=== PATIENT | male | born 1955 | race Caucasian/White ===

== ENCOUNTER 2018-10-21 01:45 | Outpatient (CLI) | payer BC, SELFPAY ==
[2018-10-21 09:19] LABS: ALT 60 U/L (12-78); AST 24 U/L (15-37); Cholesterol 197 mg/dL (50-200); HDL Cholesterol 48 mg/dL (40-60); LDL CHOLESTEROL 126 mg/dL (<100); Triglyceride 90 mg/dL (30-150)
[2018-10-24 14:20] LABS: Testosterone, Total 523 ng/dL (240-950)
== END 2018-10-21 02:05 ==
PROVIDERS: PCP Family Medicine; Visit Provider Family Medicine
DX: E78.5 Hyperlipidemia, unspecified (principal); N52.9 Male erectile dysfunction, unspecified; Z12.5 Encounter for screening for malignant neoplasm of prostate
CPT/HCPCS: 36415; 80061; 83721; 84153; 84403; 84450; 84460

== ENCOUNTER 2019-05-19 01:41 | Outpatient (CLI) | payer BC, SELFPAY ==
[2019-05-19] MEDS: Inhaler, Assist Device 1 EACH MC (09:00)
[2019-05-19] MEDS: Albuterol HFA 18 GM 200 PUFF INH IH (09:21)
--- NOTE | 2019-05-19 14:19 | PFT_ITS ---
DATE OF VISIT: May 19, 2019 REQUESTING PROVIDER: Ricardo Stephens M.D. Spirometry shows borderline mild obstructive airways disease with no bronchodilator response. This may represent normal variant. Lung volumes showed no evidence of restriction. Diffusion capacity normal. Airways resistance normal. IMPRESSION: Likely normal overall normal pulmonary function study though there might be some borderline mild obstruction. This, however, may just represent a normal variant with a slightly suboptimal patient effort for pre-bronchodilator testing. Clinical correlation therefore recommended.
== END 2019-05-19 02:01 ==
PROVIDERS: PCP Family Medicine; Visit Provider Family Medicine
DX: R06.00 Dyspnea, unspecified (principal); Z87.891 Personal history of nicotine dependence
CPT/HCPCS: 94060; 94150; 94726; 94729

== ENCOUNTER 2020-03-05 03:50 | Outpatient (CLI) | payer BC, SELFPAY ==
[2020-03-05 10:08] LABS: Abs Immature Grans 0.02 10^3/uL (0.0-0.06); Absolute Basophil Count 0.03 10^3/uL (0.0-0.2); Absolute Eosinophil Count 0.17 10^3/uL (0.0-0.7); Absolute Lymphocyte Count 1.48 10^3/uL (1.2-3.4); Absolute Neutrophil Count 4.37 10^3/uL (1.2-6.7); Basophils % 0.4; Eosinophils % 2.5; HCT 42.4 % (40.0-50.0); HGB 13.6 g/dL (13.5-17.5); Immature Grans % 0.3; Lymphocytes % 21.5; MCH 30.2 pg (27.0-33.0); MCHC 32.1 % (32.0-36.0); MCV 94.2 fL (80-95); Monocytes % 11.6; Neutrophils % 63.7; Nucleated RBC 0 %; Platelet Count 276 10^3/uL (130-400); RDW-SD 41.8 fL; WBC 6.87 10^3/uL (4.4-10.8)
[2020-03-05 10:52] LABS: Bacteria Many HPF (Negative); C & S Indicated? Yes; WBC >50 HPF (0-5)
[2020-03-05 11:01] LABS: ALT 294 U/L (16-63); AST 101 U/L (15-37); Albumin 3.3 g/dL (3.4-5.0); Alkaline Phosphatase 244 U/L (46-116); Anion Gap 9.3 mmol/L (3-11); BUN 17 mg/dL (7-18); Bilirubin, Total 0.4 mg/dL (0.2-1.0); CO2 28.7 mmol/L (21.0-32.0); CREATININE 1.07 mg/dL (0.70-1.30); Calcium 9.1 mg/dL (8.5-10.1); Chloride 104 mmol/L (98-107); Glucose 98 mg/dL (74-106); Potassium 4.2 mmol/L (3.5-5.1); Sodium 142 mmol/L (136-145); Total Protein 6.7 g/dL (6.4-8.2)
== END 2020-03-05 04:10 ==
PROVIDERS: PCP Family Medicine; Visit Provider Family Medicine
DX: R10.9 Unspecified abdominal pain (principal); R82.998 Other abnormal findings in urine
CPT/HCPCS: 36415; 80053; 87077; 81015; 85025; 87086; 87186

== ENCOUNTER 2020-03-11 01:26 | Outpatient (CLI) | payer BC, SELFPAY ==
--- NOTE | 2020-03-11 07:15 | DI.CT_ITS ---
EXAM: CT ABDOMEN PELVIS W CLINICAL HISTORY: persistent constipation; wt loss recently TECHNIQUE: Imaging Protocol: Axial computed tomography images with coronal and sagittal reformatted images were created and reviewed CONTRAST MATERIAL: Intravenous: Omnipaque 350 Contrast volume:100 mL Oral: Yes COMPARISON: No exams were available for comparison FINDINGS: ABDOMEN: Lung Bases: Scarring in the left lower lobe and lingula. Liver: Normal density. No measurable mass. Portal, Superior Mesenteric, and Splenic Veins: Unremarkable. Gallbladder and Biliary Tract: No radiodense calculus or dilation. Pancreas: Normal density, no abnormal calcifications or inflammatory process. Spleen: Normal. Adrenals: No masses seen. Kidneys: Normal size, contour and axis. There are bilateral duplex collecting systems proximally. No radiodense stones or obstructive uropathy. Bilateral renal cysts. Abdominal Aorta: Abdominal portion non-dilated. Atherosclerosis. Bowel: No obstruction or bowel wall thickening. Appendix measures 1 cm in diameter. No appendicoliths or Miladys appendiceal inflammatory changes are seen. There is a moderate amount of stool throughout th e colon. Peritoneal Cavity: No ascites, collection or mesenteric inflammatory response. Lymph Nodes: Within normal limits. Bones: Degenerative changes. Soft Tissues: Findings suggestive of a prior right inguinal hernia repair. PELVIS: Bladder: Symmetric distention, no gross wall thickening. Reproductive Organs: Enlarged prostate gland. Lymph Nodes: Within normal limits. Bones: Degenerative changes. IMPRESSION: 1. Moderate amount of retained stool throughout the colon suggesting constipation. 2. Prostatic enlargement. 3. Appendix measuring 1 cm in diameter. No surrounding inflammation or appendicoliths. RADIATION DOSE DELIVERED: 950.71mGy.cm Total DLP DATA REPOSITORY: All CT scans at this facility are submitted to the National Radiology Data Registry (NRDR) Dose Index Registry (DIR) with the [employer] ([employer]). RADIATION OPTIMIZATION: All CT scans at this facility use at least one of these dose optimization te chniques: automated exposure control; mA and/or kV adjustment per patient size (includes targeted exa ms where dose is matched to clinical indication); or iterative reconstruction.
[2020-03-11] MEDS: Normal Saline - Diluent 50 ML VIAL IV (09:24)
[2020-03-11] MEDS: Normal Saline Flush 10 ML SYR IVP (09:25)
[2020-03-11] MEDS: Omnipaque 350 MG/ML 50 ML BTL PO (09:28)
== END 2020-03-11 01:46 ==
PROVIDERS: PCP Family Medicine; Visit Provider Family Medicine
DX: K59.00 Constipation, unspecified (principal); N40.0 Benign prostatic hyperplasia without lower urinary tract symptoms
CPT/HCPCS: 74177; Q9967

== ENCOUNTER 2020-04-09 03:17 | Outpatient (CLI) | payer BC, SELFPAY ==
[2020-04-09 09:05] LABS: ALT 88 U/L (16-63); AST 31 U/L (15-37); Albumin 3.6 g/dL (3.4-5.0); Alkaline Phosphatase 114 U/L (46-116); Bilirubin, Total 0.4 mg/dL (0.2-1.0); Total Protein 6.8 g/dL (6.4-8.2)
[2020-04-09 18:10] LABS: PSA, Screening 3.4 ng/mL (0.0-4.5)
== END 2020-04-09 03:37 ==
PROVIDERS: PCP Family Medicine; Visit Provider Family Medicine
DX: G72.89 Other specified myopathies (principal); Z12.5 Encounter for screening for malignant neoplasm of prostate
CPT/HCPCS: 36415; 80076; 84153

== ENCOUNTER 2020-05-13 10:38 | Outpatient (REF) | payer BC, SELFPAY | END 2020-05-13 10:58 | LOC: LBN 10:38 | PROVIDERS: PCP Family Medicine; Visit Provider Nurse Practitioner Gerontology | DX: R97.20 Elevated prostate specific antigen [PSA] (principal) | CPT/HCPCS: 84154 ==

== ENCOUNTER 2020-11-17 03:21 | Outpatient (CLI) | payer OTHER, SELFPAY | END 2020-11-17 03:22 | disposition home or self-care (01) | LOC: LBO 03:21 | PROVIDERS: PCP Family Medicine; Visit Provider Nurse Practitioner Gerontology | DX: R97.20 Elevated prostate specific antigen [PSA] (principal) | CPT/HCPCS: 36415; 84153 ==

== ENCOUNTER 2020-11-24 00:49 | Outpatient (CLI) | payer OTHER, SELFPAY ==
--- NOTE | 2020-11-24 08:00 | DI.RAD_ITS ---
Exam(s) XR HIP PELVIS ADULT BL EXAM: XR HIP PELVIS ADULT BL CLINICAL HISTORY: jose j hip pain,M25.551,M25.552. TECHNIQUE: 2D digital imaging was performed. COMPARISON: CT CT ABDOMEN PELVIS W from 03/11/2020 FINDINGS: There is no evidence of pelvic nor hip fracture. No hip joint space narrowing. Small peripherally c alcified density seen off the superolateral aspect of the right hip acetabulum, appearing corticated. No ominous osseous lesions. Sacroiliac joints appear unremarkable. IMPRESSION: DATA REPOSITORY: RADIATION DOSE DELIVERED:
== END 2020-11-24 01:09 ==
PROVIDERS: PCP Family Medicine; Visit Provider Family Medicine
DX: M25.551 Pain in right hip (principal); M25.552 Pain in left hip
CPT/HCPCS: 73521

== ENCOUNTER 2021-03-31 00:50 | Outpatient (CLI) | payer OTHER, SELFPAY ==
--- NOTE | 2021-03-31 07:45 | DI.RAD_ITS ---
Exam(s) XR CERVICAL SPINE COMP 4-5V EXAM: XR CERVICAL SPINE COMP 4-5V CLINICAL HISTORY: Neck pain for 2 months,M54.2. TECHNIQUE: 2D digital imaging was performed. COMPARISON: No exams were available for comparison FINDINGS: No evidence of fracture or listhesis nor offset of the spinal laminar line. Disc spaces exhibit rela tively preserved disc height at each level. No cervical ribs. On the oblique views there are small Luschka joint osteophytes at C4-5 level 2 on the left side and C5-6 level on the opposite side. No cervical ribs. IMPRESSION: Subtle degenerative disc disease. If clinically indicated follow-up MRI can be performed. DATA REPOSITORY: RADIATION DOSE DELIVERED:
== END 2021-03-31 01:10 ==
PROVIDERS: PCP Family Medicine; Visit Provider Family Medicine
DX: M54.2 Cervicalgia (principal); M50.321 Other cervical disc degeneration at C4-C5 level; M50.322 Other cervical disc degeneration at C5-C6 level
CPT/HCPCS: 72050

== ENCOUNTER 2021-11-18 02:48 | Outpatient (CLI) | payer OTHER, SELFPAY ==
[2021-11-18 08:14] LABS: ALT 69 U/L (16-63); AST 38 U/L (15-37); Calculated LDL 135 mg/dL (<100); Cholesterol 199 mg/dL (<200); HDL Cholesterol 36 mg/dL (40-60); Triglyceride 142 mg/dL (<150)
[2021-11-18 22:50] LABS: PSA, Screening 2.2 ng/mL (<=4.5)
== END 2021-11-18 02:49 | disposition home or self-care (01) ==
LOC: LBO 02:49
PROVIDERS: Nurse Practitioner Gerontology; PCP Family Medicine; Visit Provider Family Medicine
DX: E78.5 Hyperlipidemia, unspecified (principal); R94.5 Abnormal results of liver function studies; K76.0 Fatty (change of) liver, not elsewhere classified; R97.20 Elevated prostate specific antigen [PSA]; Z12.5 Encounter for screening for malignant neoplasm of prostate
CPT/HCPCS: 36415; 80061; 84153; 84450; 84460

== ENCOUNTER → 2022-03-14 00:46 | Outpatient (CLI) | payer OTHER, SELFPAY ==
--- NOTE | 2022-03-14 07:30 | DI.RAD_ITS ---
Exam(s) XR CERVICAL SPINE COMP 4-5V EXAM: XR CERVICAL SPINE COMP 4-5V CLINICAL HISTORY: chronic neck pain,M54.2. TECHNIQUE: 2D digital imaging was performed. Six images were obtained. AP, odontoid, lateral and jose j ateral oblique images were obtained. COMPARISON: CR XR CERVICAL SPINE COMP 4-5V from 03/31/2021 FINDINGS: The odontoid is intact. The lateral masses are well aligned. There is normal alignment of the cervi evans spine. The disc spaces and posterior elements are well maintained. There are mild degenerative changes of the facets at C4-C5. Small osteophytes are seen at the endplates posteriorly at C5-C6. No acute fracture or subluxation is present. There is mild narrowing of the neural foramen on the right at C3-C4. The cervical thoracic junction is well maintained. The prevertebral soft tissues are unre markable. Lung apices are clear. IMPRESSION: Mild degenerative changes seen in the cervical spine. DATA REPOSITORY: RADIATION DOSE DELIVERED:
== END ==
PROVIDERS: PCP Family Medicine; Visit Provider Family Medicine
DX: M47.812 Spondylosis without myelopathy or radiculopathy, cervical region (principal)
CPT/HCPCS: 72050

== ENCOUNTER 2022-09-05 02:26 | Outpatient (CLI) | payer MEDICARE, SELFPAY ==
[2022-09-05 14:17] LABS: CREATININE 1.1 mg/dL (0.70-1.30); Estimated GFR 74.04 (mL/min/1.73m2); Potassium 3.9 mmol/L (3.5-5.1)
== END 2022-09-05 02:27 | disposition home or self-care (01) ==
LOC: LBO 02:26
PROVIDERS: PCP Family Medicine; Visit Provider Family Medicine
DX: I10 Essential (primary) hypertension (principal)
CPT/HCPCS: 36415; 82565; 84132

== ENCOUNTER 2022-12-28 02:22 | Outpatient (CLI) | payer MEDICARE, SELFPAY ==
[2022-12-29 20:25] LABS: PSA, Diagnostic 2.3 ng/mL (<=4.5)
== END 2022-12-28 02:23 | disposition home or self-care (01) ==
LOC: LBO 02:22
PROVIDERS: PCP Family Medicine; Visit Provider Nurse Practitioner Gerontology
DX: N40.0 Benign prostatic hyperplasia without lower urinary tract symptoms (principal)
CPT/HCPCS: 36415; 84153

== ENCOUNTER → 2023-01-23 09:47 | Outpatient (BNVA) | payer MEDICARE, SELFPAY | PROVIDERS: PCP Family Medicine; Visit Provider Nurse Practitioner Gerontology | DX: R97.20 Elevated prostate specific antigen [PSA] (principal); N40.1 Benign prostatic hyperplasia with lower urinary tract symptoms; R39.89 Other symptoms and signs involving the genitourinary system | CPT/HCPCS: 99213 ==

== ENCOUNTER 2023-03-04 14:42 | Emergency (ER) | payer MEDICARE, SELFPAY ==
[2023-03-04 14:42] VITALS: BP 170/96; PULSE 88; RESP 20; TEMP 36.4; O2SAT 90
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
[2023-03-04] MEDS: MORPHine 10 MG/ML VIAL 5 MG IVP (15:38)
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
[2023-03-04] MEDS: ACETAMINOPHEN 1,000 MG/100 ML BTL 400 MG IVPB (16:19)
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
[2023-03-04 16:57] LABS: Abs Immature Grans 0.04 10^3/uL (0.0-0.06); Absolute Basophil Count 0.04 10^3/uL (0.0-0.2); Absolute Eosinophil Count 0.01 10^3/uL (0.0-0.7); Absolute Monocyte Count 0.53 10^3/uL (0.1-0.8); Basophils % 0.3; Eosinophils % 0.1; HCT 41.4 % (40.0-50.0); HGB 13.8 g/dL (13.5-17.5); Immature Grans % 0.3; Lymphocytes % 5.4; MCH 30.5 pg (27.0-33.0); MCHC 33.3 % (32.0-36.0); MCV 92 fL (80-95); MPV 9.9 fL (8.0-11.0); Monocytes % 4.3; Neutrophils % 89.6; Platelet Count 240 10^3/uL (130-400); RBC 4.52 10^6/uL (4.36-5.78); RDW 12.3 % (11.8-14.1); WBC 12.31 10^3/uL (4.4-10.8)
[2023-03-04 17:00] LABS: Absolute Lymphocyte Count 0.66 10^3/uL (1.2-3.4); Absolute Neutrophil Count 11.03 10^3/uL (1.2-6.7)
[2023-03-04 17:18] LABS: PTT Activated 24.6 sec (21.5-31.9); Prothrombin Time 9.9 sec (9.3-11.0)
[2023-03-04 17:19] LABS: ALT 37 U/L (16-63); AST 23 U/L (15-37); Albumin 3.6 g/dL (3.4-5.0); Alkaline Phosphatase 91 U/L (46-116); Amylase 54 U/L (25-115); BUN 19 mg/dL (7-18); Bilirubin, Total 0.4 mg/dL (0.2-1.0); CREATININE 1.1 mg/dL (0.70-1.30); Calcium 8.9 mg/dL (8.5-10.1); Chloride 103 mmol/L (98-107); Estimated GFR 73.58 (mL/min/1.73m2); Glucose 94 mg/dL (74-106); Lipase 39 U/L (16-77); Potassium 3.8 mmol/L (3.5-5.1); Sodium 138 mmol/L (136-145); Total Protein 6.9 g/dL (6.4-8.2)
== END 2023-03-04 18:08 | disposition home or self-care (01) ==
PROVIDERS: Emergency Provider Student in an Organized Health Care Education/Training Program; PCP Family Medicine
DX: M25.512 Pain in left shoulder (principal); R07.81 Pleurodynia; V19.9XXA Pedal cyclist (driver) (passenger) injured in unspecified traffic accident, initial encounter; S42.032A Displaced fracture of lateral end of left clavicle, initial encounter for closed fracture; I10 Essential (primary) hypertension; R91.8 Other nonspecific abnormal finding of lung field
CPT/HCPCS: 36415; 80053; 83690; 96365; 96375; 99284; 71046; 71100; 73030; 82150; 85025; 85610; 85730; 99285; J0131; J2270

== ENCOUNTER 2023-03-06 15:00 | Outpatient (CLI) | payer MEDICARE, SELFPAY ==
--- NOTE | 2023-03-06 14:00 | DI.RAD_ITS ---
Exam(s) XR CLAVICLE LT EXAM: XR CLAVICLE LT CLINICAL HISTORY: clavicle fx f/u TECHNIQUE: 2D digital imaging was performed of the left clavicle. Two images were obtained. AP and axial views were obtained. COMPARISON: CR,XR XR SHOULDER LT COMPLETE 2+V from 03/04/2023 FINDINGS: BONES: There is again seen a fracture of the distal left clavicle. Since the prior examination, ther e has been an interval increase in the displacement of the fracture. The acromioclavicular joint is intact. No bony destructive lesion is seen. JOINTS: No dislocation present. SOFT TISSUE: Normal. IMPRESSION: Interval increased displacement of the distal left clavicular fracture. DATA REPOSITORY: RADIATION DOSE DELIVERED:
== END 2023-03-06 15:01 | disposition home or self-care (01) ==
LOC: DIORS 15:00
PROVIDERS: PCP Family Medicine; Referring Provider Family Medicine; Visit Provider Student in an Organized Health Care Education/Training Program
DX: S42.032A Displaced fracture of lateral end of left clavicle, initial encounter for closed fracture; W19.XXXA Unspecified fall, initial encounter
CPT/HCPCS: 99204; 99214; 73000

== ENCOUNTER 2023-03-08 10:41 | Day surgery (SDC) | payer MEDICARE, SELFPAY ==
[2023-03-08] VITALS (28 sets, daily range): BP systolic 127–167; BP diastolic 62–97; PULSE 59–83; RESP 9–17; TEMP 36.5–36.8; O2SAT 91–96; BMI 32.1
--- NOTE | 2023-03-08 07:29 | W.PM.OP ---
Date of service: 03/08/23 Time of Service: 17:00 Operative Note Operative Note DATE OF PROCEDURE: 03/08/23 PRE-OP DIAGNOSIS: Left displaced distal clavicle fracture POST-OP DIAGNOSIS: same PROCEDURE: Left clavicle open reduction internal fixation, CPT #91316 SURGEON: Donald Wilson PRECISION MACHINIST: Barrington Segura PRECISION MACHINIST: Sona Gifford ANESTHESIA TYPE: Local By Surgeon, General LMA/ETT and Primary Nerve Block Refer to Anesthesia Record ESTIMATED BLOOD LOSS: 10 Patient was transported to: PACU Implants: Synthes 2.7mm VA LCP clavicle plate system LATERAL CS1 plate with 5x lateral and 3x medial bicortical locking screws, 1x medial bicortical compression screw; 2x Arthrex suture tape lateral cerclage. Indications: Please see complete medical record for details. Procedure Description: In the operating room, general anesthesia was induced. The patient was positioned supine on the operating room table. All bony prominences were well-padded. Preoperative antibiotics were administered. The clavicle was prepped and draped in the usual sterile fashion. The correct patient, procedure, and side of the procedure were all verified prior to incision. The planned lateral clavicle and AC joint incision was pre-injected with local anesthetic containing epinephrine. The fracture site was approached raising full-thickness flaps down to bone. The incision was extended medially laterally as necessary. Care was taken to preserve soft tissue attachments especially the AC joint capsule and anterior inferior attachments to the trapezoid CC ligament. The fracture ends were identified. Bone forceps were used to provisionally obtain reduction. Lateral bone was quite small as expected, so hook plate fixation was attempted initially, a small posterior lateral opening was made in the trapezius with blunt dissection confirming opening for hook plate underneath the acromion. Various hook plate options were tried, but given the AC joint arthrosis all of the hooks were to short in height and resulted in significant downward pressure on the clavicle displacing the fracture and potentially leading to acromial erosion. The superior lateral margin of the distal clavicle was smoothed and rasped to better fit hook plate shape, but still given the under side acromion bone spurring there is no way to achieve a reasonable fit. Suture tape was then passed through the lateral bone fragment to be used later for repair. A needle was placed in the AC joint, capsule and attachment still maintained to the lateral fragment, and fluoroscopic guidance used to place a lateral precontoured plate as far laterally as possible to achieve optimal screw purchase and fixation in the distal fragment. The needle in the AC joint was used to confirm that the plate was medial from the joint and that all screws would be in the lateral fragment and not penetrate the joint. The plate was provisionally held medially with bicortical cortex screw and rotated adjusted into optimal position on the superior aspect of the clavicle up to the AC joint. An initial cortex screw was placed in the central lateral hole fluoroscopically and under tactile field confirming bicortical purchase on the inferior aspect of the lateral fragment. There was excellent reduction and provisional fixation. The next medial to lateral locking screws were drilled and filled with appropriately length bicortical locking screws, the medial 3 locking screw positions were drilled and filled with bicortical locking screws, and lastly the remaining most lateral 2 screws were drilled using fluoroscopic guidance in a divergent fashion from each other and parallel to the contour of the distal clavicle at the AC joint and filled with appropriate length bicortical screws. C arm confirmed excellent fracture reduction and appropriate hardware placement, the hardware was not too close to the AC joint, under direct stress with a clamp the construct was stable as well as stable to direct manual stress upward and downward pressure through the arm at the shoulder. The suture tape that had been already placed was then secured through the suture holes on the lateral margin of the plate and tied of low-profile knot. An additional suture tape was then cerclage around and through the lateral aspect of the clavicle slightly more medially, passed through a suture hole in the plate and then tied also low-profile knots over the top of the plate for added fixation. The plate and fracture was inspected and demonstrated good stability and fixation strength. AP and [id number] fluoroscopy confirmed appropriate fracture reduction and hardware placement. The wound was copiously irrigated with normal saline. Deep and subcutaneous tissue was closed in a full-thickness watertight fashion with buried interrupted 2-0 Monocryl. Subcuticular layer was closed using running 3-0 Monocryl. Skin glue was applied over the incision followed by a Mepilex Band-Aid. The patient awoke from anesthesia without complication and was transferred to the recovery room in a stable condition.
--- NOTE | 2023-03-08 07:29 | W.PM.DSUDISC ---
Date of service: 03/08/23 Time of Service: 17:00 Discharge Plan Disposition Patient Disposition: Home Condition: Stable Discharge Details Attending Provider: Donald Wilson Primary Care Provider: Ricardo Stephens Home Meds and New Rx's Prescriptions: New naproxen 250 mg tablet 250 - 500 mg PO BID PRNQty: 40 0RF Rx Instructions: take with a meal oxycodone 5 mg tablet 5 - 10 mg PO Q4H MDD 30 mg PRN (Reason: moderate to severe pain) Qty: 12 0RF Continued Emgality Pen 120 mg/mL pen injector 120 - 240 mg subcut QMONTH PRN (Reason: cluster headache) Rx Instructions: one injection in each arm Day 1, then one injection q month docusate sodium [Colace] 100 mg capsule 100 mg PO DAILY PRN PROVENTIL HFA 18 GM HFA.AER.AD 1 - 2 puff Inhalation prior to exercise PRNQty: 1 3RF losartan 50 mg tablet 50 mg PO DAILY Qty: 90 3RF bupropion HCl [Wellbutrin XL] 300 mg tablet extended release 24 hr 300 mg PO QAM Qty: 90 3RF rosuvastatin 10 mg tablet 10 mg PO DAILY Qty: 90 1RF oxycodone 5 mg capsule 5 mg PO BID PRNQty: 8 0RF Enbrel SureClick 50 mg/mL (1 mL) Pen Injector 50 mg SUBCUT QMONTH Discharge Instructions Additional Instructions: Surgery: Left distal clavicle ORIF Activity: For about 4-6 weeks, you should protect left clavicle and shoulder. Keep arm near side in a relatively neutral position most of the time. Do not try to lift or raise your arm using your own muscles. You should use the sling whenever you are out of the house. At home it is best to remove the sling and rest the arm on a pillow at your side or support the operative side with your other hand. You should avoid dangling the left arm, and support it when ambulatory with your other hand or the sling. After the initial postop visit, we will gradually increase shoulder range of motion. You may gently use her hand for light activities. Prescriptions: Naproxen 250 mg take 1-2 every 12 hours with a meal as needed for moderate pain Oxycodone 5 mg take 1-2 every 4-6 hours as needed for severe pain You may use rnqx-pnf-cwviejo Tylenol (acetaminophen) as needed for mild pain. These pain medications may be taken all at once or in different combinations as needed. Also, recommend Colace (docusate) as a stool softener as surgery and pain medicine cause constipation. You may try nwgr-blt-[id number] diphenhydramine (Benadryl) 25-50 mg nightly as a sleep aid Dressings: Keep bandage in place until follow-up. Please keep clean and dry. Follow-up: 10-[address] Wilson You may take off the leg compression stockings this evening at home. You may also leave them on a few days longer if you have a history of leg swelling or edema. Let us know right away if you develop any redness, drainage, fevers, chest pain, or trouble breathing. Do not drink alcohol or drive for at least 24 hours after anesthesia. Please call the office during business hours with any questions or concerns. Discharge Orders Discharge Orders: Discharge Order (Routine); Ordered 03/08/23 Ordered By: Donald Wilson DS: Diagnosis Discharge Diagnosis (1) Fracture of left clavicle: Status: Acute
[2023-03-08] MEDS: Lactated Ringers 1,000 ML 80 ML IV (11:30)
--- NOTE | 2023-03-08 12:24 | W.ANESPRE ---
General Info Date of Service Date Performed: 03/08/23 Height: 5 ft 10 in Weight: 101.6 kg Body Mass Index (BMI): 32.1 Surgical Procedure: Operation Date: 03/08/23 13:40 Proposed Procedure Side Surgeon p Shoulder ORIF Clavicle, possible Hook Plate Left Donald Wilson MD Meds Allergies and Home Medications Allergies Allergy/AdvReac Type Severity Reaction Status Date / Time shellfish derived Allergy Severe Verified 03/08/23 11:06 latex Allergy Mild Verified 03/08/23 11:06 Penicillins Allergy rash Verified 03/08/23 11:06 simvastatin AdvReac Severe MUSCLE, Verified 03/08/23 11:06 JOINT PAIN Home Medication Medication Instructions Recorded docusate sodium 100 mg capsule 100 mg PO DAILY PRN 03/04/21 (Colace) galcanezumab-gnlm 120 mg/mL 120 - 240 mg subcut QMONTH PRN 03/04/21 subcutaneous pen injector cluster headache (Emgality Pen) losartan 50 mg tablet 50 mg PO DAILY #90 tabs 07/31/22 bupropion HCl 300 mg 24 hr tablet, 300 mg PO QAM #90 tabs 08/10/22 extended release (Wellbutrin XL) rosuvastatin 10 mg tablet 10 mg PO DAILY #90 tabs 09/19/22 oxycodone 5 mg capsule 5 mg PO BID PRN #8 caps 03/04/23 etanercept 50 mg/mL (1 mL) 50 mg subcut QMONTH 03/07/23 subcutaneous pen injector (Enbrel SureClick) Current Visit Medications: Current Medications Generic Name Dose Route Start Last Admin Trade Name Alexeyq PRN Reason Stop Dose Admin Ringer's Solution 1,000 mls @ 80 mls/hr 03/08/23 06:00 03/08/23 11:30 IV 04/06/23 23:59 80 mls/hr INFUSION LAW Administration Cefazolin Sodium/Dextrose 2 gm in 50 mls @ 100 mls/hr 03/08/23 06:00 Ancef Duplex IVPB 04/06/23 23:59 PREOP LAW IV Miscellaneous Supplies 1 each 03/08/23 06:00 Iv Access IV 04/06/23 23:59 DIRECTED LAW Oxycodone HCl 0 mg 03/08/23 07:29 Oxycodone 5 Mg Tab PO 04/07/23 07:28 Q3H PRN PRN Pain Sodium Chloride 0 ml 03/08/23 06:00 Normal Saline Flush 10 Ml Syr IV 04/06/23 23:59 PRN PRN Sodium Chloride 0 ml 03/08/23 06:00 Normal Saline 10 Ml Vial IJ 04/06/23 23:59 DIRECTED PRN Sterile Water 0 ml 03/08/23 06:00 Water,Injection,Sterile 10 Ml Vial IJ 04/06/23 23:59 DIRECTED PRN PFSH Active Problems Active Problems: Problem Status Onset Code Vitamin D deficiency E55.9 Psoriasis L40.9 Hyperlipidemia E78.5 Cluster headaches G44.009 Anxiety with depression F41.8 Elevated blood pressure, situational R03.0 Dyspnea R06.00 Well adult Encounter for immunization Z23 Abdominal pain R10.9 Constipation K59.00 Weight loss R63.4 Abnormal LFTs R94.5 Elevated PSA R97.20 Bilateral hip pain M25.551, M25.552 Neck pain M54.2 Excessive cerumen in both ear canals H61.23 Impacted cerumen, left ear H61.22 Acute dysfunction of right eustachian tube H69.81 Neck pain M54.2 Aneurysm I72.9 Fracture of left clavicle 03/04/23 S42.002A Medical History Medical History Anxiety Depression Hyperlipidemia Psoriatic arthritis Surgical History Surgical History (Updated 03/08/23 @ 11:06 by Narinder Hernandez) Hx of tonsillectomy Tobacco Smoking/Tobacco Use Status: Former Tobacco Use Passive smoking exposure: Yes Second hand exposure: Yes Alcohol Alcohol Intake: current Alcohol intake frequency: a few times a week Alcohol type: hard liquor Substance Use Substance use: Occasionally Substance use type: marijuana Vital Signs and Lab Results Vital Signs Most Recent Vital Signs in EMR: Most Recent Vital Signs Temp Pulse Resp BP Pulse Ox 36.8 C 69 16 154/82 H 94 03/08/23 11:09 03/08/23 11:09 03/08/23 11:09 03/08/23 11:09 03/08/23 11:09 Lab Results Blood Type / Crossmatch: No Data to Display Complete Blood Count: White Blood Count 12.31 10^3/uL (4.4-10.8) H 03/04/23 16:45 Red Blood Count 4.52 10^6/uL (4.36-5.78) 03/04/23 16:45 Hemoglobin 13.8 g/dL (13.5-17.5) 03/04/23 16:45 Hematocrit 41.4 % (40.0-50.0) 03/04/23 16:45 Platelet Count 240 10^3/uL (130-400) 03/04/23 16:45 Complete Metabolic Panel: Sodium 138 mmol/L (136-145) 03/04/23 16:45 Potassium 3.8 mmol/L (3.5-5.1) 03/04/23 16:45 Chloride 103 mmol/L (98-107) 03/04/23 16:45 Carbon Dioxide 25.0 mmol/L (21.0-32.0) 03/04/23 16:45 BUN 19 mg/dL (7-18) H 03/04/23 16:45 Creatinine 1.1 mg/dL (0.70-1.30) 03/04/23 16:45 Est GFR (CKD-EPI 2020) 73.58 (mL/min/1.73m2) 03/04/23 16:45 Calcium 8.9 mg/dL (8.5-10.1) 03/04/23 16:45 Albumin 3.6 g/dL (3.4-5.0) 03/04/23 16:45 Glucose 94 mg/dL (74-106) 03/04/23 16:45 Liver Function Panel: Alanine Aminotransferase (ALT/SGPT) 37 U/L (16-63) 03/04/23 16:45 Aspartate Amino Transf (AST/SGOT) 23 U/L (15-37) 03/04/23 16:45 Coagulation Panel: INR International Normalized Ratio 1.0 (0.9-1.1) 03/04/23 16:45 Prothrombin Time 9.9 sec (9.3-11.0) 03/04/23 16:45 Activated Partial Thromboplast Time 24.6 sec (21.5-31.9) 03/04/23 16:45 Cardiac Panel: No Data to Display Arterial Blood Gas: No Data to Display Venous Blood Gas: No Data to Display Pancreas Panel: Amylase Level 54 U/L (25-115) 03/04/23 16:45 Lipase 39 U/L (16-77) 03/04/23 16:45 Thyroid Panel: No Data to Display Infectious Disease: No Data to Display Blood Cultures: No Data to Display Toxicology Panel: No Data to Display Anesthesia Assessment and Plan Anesthesia History Personal History: No History of Anesthesia Complications Family History: No Family History of Anesthesia Complications Exercise Tolerance Exercise Tolerance: Metabolic Equivalents>4 Pertinent Negatives Pertinent Negatives: No Symptoms of GERD, No Major Cardiovascular Symptoms or Complaints and No Major Pulmonary Symptoms or Complaints Cardiac & Pulmonary Exam Cardiac Exam: Normal S1/S2 Heart Sounds Pulmonary Exam: Clear Bilateral Breath Sounds Implantable Cardiac Device Does patient have a Pacemaker or an ICD?: No Airway Exam Known Difficult Airway: No Mallampati Class: 2 Mouth Opening: Normal (> 3cm) Thyromental Distance: Greater than 3 cm Neck Range of Motion: Full ROM Neck Circumference: Normal Teeth Condition: Normal Dentition ASA Classification ASA Score: ASA 2 Emergency Case?: No NPO Status NPO Status: NPO Clears >2 hours, Solids >8 hours Anesthesia Plan Resuscitation Status: Full Code Anesthesia Technique: General Anesthesia Airway Planned: Endotracheal Tube Pain Management: Surgeon and patient request nerve block Monitors Used: Standard Monitors
--- NOTE | 2023-03-08 12:45 | DI.RAD_ITS ---
Exam(s) XR CLAVICLE LT LIMITED 1V EXAM: XR CLAVICLE LT LIMITED 1V CLINICAL HISTORY: LEFT CLAVICLE FRACTURE TECHNIQUE: 2D and realtime digital imaging was performed. CONTRAST MATERIAL: Refer to procedure report. COMPARISON: CR XR CLAVICLE LT from 03/06/2023 FINDINGS: Fluoroscopy was provided for Dr. Wilson during the performance of a reduction and internal fixation o f the distal clavicular fracture. Please refer to the procedure report for complete details. Ka,r=5.11 mGy IMPRESSION: RADIATION DOSE DELIVERED:
[2023-03-08] MEDS: ceFAZolin 2 GM/50 ML BAG IVPB (14:05)
--- NOTE | 2023-03-08 14:30 | W.ANESNERVE ---
Nerve Block Single Injection Procedure Date and Time Date Performed: 03/08/23 Procedure Start: 13:40 Location Where Procedure Performed Procedure Location: Day Surgery Unit Reason Performed: Postoperative Analgesia Requesting Provider: Donald Wilson Timeout Performed Timeout Performed: Yes Monitoring Used ECG, Blood Pressure, SpO2 and See EMR for corresponding vital signs Sterility Sterility: Hand Hygiene, Surgical Cap, Surgical Mask and Sterile Gloves Sedation Given During Procedure Sedation Given (Indicate Dose Given): Versed IV Dose:: 2mg Patient Mental Status Patient Mental Status: Awake Nerve Block 1st Nerve Block: Laterality: Left Block Type: Superficial Cervical Plexus Ultrasound Image Saved?: Yes Needle / Catheter Used: 80mm SonoPlex II Local Anesthetic Bolus (Indicate Dose Given): Lidocaine used for local infiltration of skin, Injected in 3-5ml increments after negative blood aspiration, Bupivacaine 0.5% Dose:: 5ml and Exparel Dose:: 5ml Additives (Indicate Dose Given): None Ultrasound: Sterile probe cover and gel used Nerve Stimulator: Not Used Paresthesia: None Procedure Tolerated: No Complications and Patient tolerated well Procedure Outcome: Successful Procedure Comment: Pt. did state that his pain seemed to be improving when entering the OR. Performed By: Allen Pack
[2023-03-08] MEDS: EPINEPHrine 30 MG/30 ML VIAL (16:19)
[2023-03-08] MEDS: Bupivacaine 0.25% Pres-Free 30 ML VIAL (16:20)
--- NOTE | 2023-03-08 18:21 | W.ANESPOSTOP ---
Postoperative Evaluation Date, Time and Location Date Performed: 03/08/23 Time Performed: 17:38 Patient Location: PACU Vital Signs Most Recent Imported Vital Signs: Most Recent Vital Signs Temp Pulse Resp BP Pulse Ox 36.6 C 67 17 151/78 H 92 03/08/23 17:35 03/08/23 17:35 03/08/23 17:35 03/08/23 17:35 03/08/23 17:35 Pain Score Most Recent Pain Score: Most Recent Pain Score Pain Level 0 03/08/23 13:45 Assessment Mental Status: Awake (Alert & Oriented to Patient Baseline) Airway and Respiratory Function: Patent airway with normal (patient baseline) respiratory exam Cardiovascular Function: Hemodynamically Stable Hydration Status: Adequately Hydrated Nausea & Vomiting: No Nausea or Vomiting Pain: Pt. Denies Any Pain Peripheral Nerve Block: Regional nerve block not resolved at time of post operative discharge
== END 2023-03-08 20:02 | disposition home or self-care (01) ==
LOC: SUR 17:24 → ICU 18:24
PROVIDERS: PCP Family Medicine; Visit Provider Student in an Organized Health Care Education/Training Program
PROC: (CPT 23515; principal; 2023-03-08 13:30)
DX: S42.032A Displaced fracture of lateral end of left clavicle, initial encounter for closed fracture (principal); X58.XXXA Exposure to other specified factors, initial encounter; Z87.891 Personal history of nicotine dependence; K59.00 Constipation, unspecified; E55.9 Vitamin D deficiency, unspecified; L40.9 Psoriasis, unspecified; E78.5 Hyperlipidemia, unspecified; F41.8 Other specified anxiety disorders; G44.009 Cluster headache syndrome, unspecified, not intractable
CPT/HCPCS: 23515; C1713; 76942; 73000; J0690; J1100; J1885; J2250; J2405; J2704

== ENCOUNTER 2023-03-20 11:46 | Outpatient (CLI) | payer MEDICARE, SELFPAY ==
--- NOTE | 2023-03-20 11:30 | DI.RAD_ITS ---
Exam(s) XR CLAVICLE LT EXAM: XR CLAVICLE LT INDICATION: F/U FRACTURE ORIF. COMPARISON: CR XR CLAVICLE LT from 03/06/2023 XA XR CLAVICLE LT LIMITED 1V from 03/08/2023 TECHNIQUE: 2D digital imaging was performed. Two views. FINDINGS: A fixation plate is again noted along the distal clavicle for fracture fixation. There has been no c hange in fracture or hardware alignment. DATA REPOSITORY: RADIATION DOSE DELIVERED:
== END 2023-03-20 11:47 | disposition home or self-care (01) ==
LOC: DIORS 11:46
PROVIDERS: PCP Family Medicine; Referring Provider Family Medicine; Visit Provider Student in an Organized Health Care Education/Training Program
DX: S42.002D Fracture of unspecified part of left clavicle, subsequent encounter for fracture with routine healing; X58.XXXD Exposure to other specified factors, subsequent encounter
CPT/HCPCS: 73000

== ENCOUNTER 2023-04-04 13:56 | Outpatient (CLI) | payer MEDICARE, SELFPAY ==
--- NOTE | 2023-04-04 11:30 | DI.RAD_ITS ---
Exam(s) XR CLAVICLE LT EXAM: XR CLAVICLE LT CLINICAL HISTORY: clavicle f/u TECHNIQUE: 2D digital imaging was performed of the left clavicle. Two images were obtained. AP and axial views were obtained. COMPARISON: CR XR CLAVICLE LT from 03/20/2023 FINDINGS: BONES: There has been no change in alignment of the distal left clavicular fracture or the sideplate and screws transfixing the fracture. No new fractures present. No bony destructive lesion is seen. JOINTS: No dislocation present. Degenerative changes are seen at the acromioclavicular joint. SOFT TISSUE: Normal. IMPRESSION: Stable alignment of the distal left clavicular fracture in the orthopedic hardware. DATA REPOSITORY: RADIATION DOSE DELIVERED:
== END 2023-04-04 13:57 | disposition home or self-care (01) ==
LOC: DIORS 13:56
PROVIDERS: PCP Family Medicine; Visit Provider Student in an Organized Health Care Education/Training Program
DX: S42.002D Fracture of unspecified part of left clavicle, subsequent encounter for fracture with routine healing (principal); X58.XXXD Exposure to other specified factors, subsequent encounter
CPT/HCPCS: 73000

== ENCOUNTER 2023-05-02 14:07 | Outpatient (CLI) | payer MEDICARE, SELFPAY ==
--- NOTE | 2023-05-02 12:45 | DI.RAD_ITS ---
Exam(s) XR CLAVICLE LT EXAM: XR CLAVICLE LT INDICATION: F/U FRACTURE. COMPARISON: CR XR CLAVICLE LT from 04/04/2023 TECHNIQUE: 2D digital imaging was performed. Two views. FINDINGS: There has been no change in the alignment of the distal clavicle fracture or fixation plate. The AC joint is not widened. Spurring is again noted at the undersurface of the acromion. Mild degenerativ e changes of the glenoid. DATA REPOSITORY: RADIATION DOSE DELIVERED:
== END 2023-05-02 14:08 | disposition home or self-care (01) ==
LOC: DIORS 14:07
PROVIDERS: PCP Family Medicine; Referring Provider Family Medicine; Visit Provider Student in an Organized Health Care Education/Training Program
DX: S42.002D Fracture of unspecified part of left clavicle, subsequent encounter for fracture with routine healing (principal); X58.XXXD Exposure to other specified factors, subsequent encounter
CPT/HCPCS: 73000

== ENCOUNTER → 2023-05-14 00:21 | Outpatient (CLI) | payer MEDICARE, SELFPAY ==
--- NOTE | 2023-05-14 07:00 | DI.MRI_ITS ---
Exam(s) MR ANGIO NECK WO EXAM: MR ANGIO NECK WO CLINICAL HISTORY: dizziness,r42,i10, hypertension. TECHNIQUE: Multiplanar multisequence MRA of the Neck was performed. COMPARISON: MR MRI - BRAIN W/WO CONTRAST from 06/22/2010 FINDINGS: Common Carotid: Right: No dissection, occlusion or significant stenosis. Left: No dissection, occlusion or significant stenosis. External Carotid: Right: No evidence of occlusion or significant stenosis. Left: No evidence of occlusion or significant stenosis. Internal Carotid: Right: No dissection, occlusion or significant stenosis. Left: No dissection, occlusion or significant stenosis. Vertebral Artery: Right: No dissection, occlusion or significant stenosis. Left: No dissection, occlusion or significant stenosis. IMPRESSION: No evidence of dissection, occlusion or significant stenosis. DATA REPOSITORY:
--- NOTE | 2023-05-14 07:00 | DI.MRI_ITS ---
Exam(s) MR BRAIN WO EXAM: MR BRAIN WO CLINICAL HISTORY: dizziness,r42, hypertension, i10 TECHNIQUE: Multiplanar multisequence MRI of the brain was performed. COMPARISON: MR MRI - BRAIN W/WO CONTRAST from 06/22/2010 FINDINGS: VENTRICLES AND EXTRA AXIAL SPACES: Normal in size and morphology for the patient's age. MIDLINE SHIFT: None. CEREBRAL PARENCHYMA: No focus of restricted diffusion to suggest acute infarct. No space-occupying le kanchan identified. HEMORRHAGE: None. BRAINSTEM/CEREBELLUM: Normal. CALVARIUM: Normal. VISUALIZED PARANASAL SINUSES/MASTOIDS:Small mucous retention cysts are seen in the maxillary sinuses bilaterally. The remaining visualized paranasal sinuses are clear. BAD [place] BAND [place]ARD[place]: Normal flow void. PITUITARY GLAND: Unremarkable. OTHER FINDINGS: The bilobed fluid collection in the left infratemporal soft tissues is unchanged. IMPRESSION: Unremarkable MRI of the brain. DATA REPOSITORY:
== END ==
PROVIDERS: PCP Family Medicine; Visit Provider Family Medicine
DX: I10 Essential (primary) hypertension (principal); R42 Dizziness and giddiness
CPT/HCPCS: 70547; 70551

== ENCOUNTER 2023-05-30 13:13 | Outpatient (CLI) | payer MEDICARE, SELFPAY ==
--- NOTE | 2023-05-30 13:00 | DI.RAD_ITS ---
Exam(s) XR CLAVICLE LT EXAM: XR CLAVICLE LT CLINICAL HISTORY: clavicle f/u TECHNIQUE: 2D digital imaging was performed. Two views COMPARISON: CR XR CLAVICLE LT from 05/02/2023 FINDINGS: BONES: A fixation plate is again noted along the distal clavicle for fracture fixation. There has be en no change in fracture or hardware alignment. Spurring is again noted at the undersurface of the a cromion. JOINTS: AC joint not widened. Mild spurring at the AC joint and glenohumeral joint. Glenohumeral join t is maintained. SOFT TISSUE: Unremarkable. IMPRESSION: Stable fracture and hardware alignment. DATA REPOSITORY: RADIATION DOSE DELIVERED:
== END 2023-05-30 13:14 | disposition home or self-care (01) ==
LOC: DIORS 13:14
PROVIDERS: PCP Family Medicine; Referring Provider Family Medicine; Visit Provider Student in an Organized Health Care Education/Training Program
DX: S42.002D Fracture of unspecified part of left clavicle, subsequent encounter for fracture with routine healing (principal); X58.XXXD Exposure to other specified factors, subsequent encounter
CPT/HCPCS: 73000

== ENCOUNTER 2023-06-21 12:16 | Outpatient (CLI) | payer MEDICARE, SELFPAY ==
[2023-06-21 12:24] VITALS: BP 154/88; PULSE 65; RESP 20; TEMP 36.8; O2SAT 98
[2023-06-21 13:19] VITALS: PULSE 80; O2SAT 98
[2023-06-21] MEDS: Bupivacaine 0.5% Pres-Free 10 ML VIAL IJ (13:21)
[2023-06-21] MEDS: Lidocaine 2% Pres-Free 5 ML VIAL IJ (13:22)
[2023-06-21] MEDS: methylPREDNISolone ACETATE 40 MG/ML VIAL IJ (13:22)
--- NOTE | 2023-06-27 09:41 | PDOC.PAIN_ITS ---
Date of service: 06/21/23 Time of Service: 13:00 US Guided Nerve Blocks Procedure Performed Right Lateral Femoral Cutaneous Nerve Block Pre-Procedural Evaluation No skin issues. Pain to the right anterior thigh Referral Patient has been referred to the [facility] for Right Lateral Femoral Cutaneous Nerve Block for a chief complaint of Right anterior thigh pain Pre-Procedural Pain Score 6/10 Reason for Exam Right anterior thigh pain Patient Interview Patient was interviewed and medical record reviewed: Yes There were no contraindications to performing an US guided procedure. Risks,expected side effects, potential benefits were reviewed. The patient consent form was signed and witnessed. Standard time out procedure was performed. Patient Safety No skin issues over the site Procedure Description No sedation given for the procedure Patient was placed in the supine position and the following monitors: Pulse Ox applied. Pre-procedure ultrasound scanning perfomed using a Linear 9 MHz probe Site Preparation Chloroprep Local Anesthesia Skin and subcutaneous tissues were anesthetized with: 3 mL of Lidocaine 2%. A 21 G 3.5 Pajunk ultrasound needle was placed under live US guidance using an in plane approach to the target area. After visualization of the needle tip at at the target area the following meds: Bupivacaine 0.5% and Depo-Medrol 40mg per cc were used. Total of injectate/medication mixture note: 5 Negative aspiration for blood. [place] were removed without difficulty. Ultrasound images captured and stored. Patient Mental Status Patient was alert during procedure. Vital Signs and recorded by nursing. Follow Up/Discharge Follow up plans and appointments were discussed with patient. Post procedure instruction was given as documented in nursing documentation. Discharge criteria met and discharged from the [facility]: Yes Post Procedure Post Procedure Pain: 0/10 Patient tolerated procedure well Procedure outcome: Successful Lateral Femoral Cutaneous Nerve Block (Right)
== END 2023-06-21 12:17 | disposition home or self-care (01) ==
LOC: PC 12:16
PROVIDERS: PCP Family Medicine; Visit Provider Preventive Medicine Occupational Medicine
DX: M79.651 Pain in right thigh (principal); G57.11 Meralgia paresthetica, right lower limb
CPT/HCPCS: 00123; 64447; 76942; J1030

== ENCOUNTER 2023-07-17 02:52 | Outpatient (CLI) | payer MEDICARE, SELFPAY ==
[2023-07-17 13:00] LABS: BUN 23 mg/dL (7-18); CREATININE 1.3 mg/dL (0.70-1.30); Calcium 9.6 mg/dL (8.5-10.1); Chloride 103 mmol/L (98-107); Estimated GFR 60.21 (mL/min/1.73m2); Glucose 104 mg/dL (74-106); Sodium 139 mmol/L (136-145)
== END 2023-07-17 02:53 | disposition home or self-care (01) ==
LOC: LBO 03:14
PROVIDERS: Family Medicine; PCP Family Medicine; Visit Provider Family Medicine
DX: I10 Essential (primary) hypertension (principal)
CPT/HCPCS: 36415; 80048

== ENCOUNTER 2023-07-18 15:01 | Outpatient (CLI) | payer MEDICARE, SELFPAY ==
--- NOTE | 2023-07-18 13:45 | DI.RAD_ITS ---
Exam(s) XR CLAVICLE LT EXAM: XR CLAVICLE LT CLINICAL HISTORY: F/U FRACTURE. TECHNIQUE: 2D digital imaging was performed. Two images were obtained. AP, lateral and oblique view s were obtained. COMPARISON: CR XR CLAVICLE LT from 05/30/2023 FINDINGS: BONES: There are stable post operative changes present. The fracture line is still partially visuali zed. No new fracture or dislocation. JOINTS: The joint spaces are well maintained. Degenerative changes are seen at the acromioclavicular joint. SOFT TISSUE: Visualized lungs are clear. IMPRESSION: Stable postoperative changes. DATA REPOSITORY: RADIATION DOSE DELIVERED:
== END 2023-07-18 15:02 | disposition home or self-care (01) ==
LOC: DIORS 15:02
PROVIDERS: PCP Family Medicine; Referring Provider Family Medicine; Visit Provider Student in an Organized Health Care Education/Training Program
DX: S42.002D Fracture of unspecified part of left clavicle, subsequent encounter for fracture with routine healing (principal); X58.XXXD Exposure to other specified factors, subsequent encounter
CPT/HCPCS: 99213; 73000

== ENCOUNTER 2023-08-01 15:13 | Outpatient (CLI) | payer MEDICARE, SELFPAY ==
--- NOTE | 2023-08-01 13:30 | DI.RAD_ITS ---
Exam(s) XR ANKLE LT COMPLETE EXAM: XR ANKLE LT COMPLETE CLINICAL HISTORY: LEFT ANKLE PAIN TECHNIQUE: 2D digital imaging was performed. Three views. COMPARISON: No exams were available for comparison FINDINGS: BONES: No acute fracture is present. No bony destructive lesion is seen. Heel spurs. JOINTS:The ankle mortise is normally aligned. Tibiotalar joint space is maintained. SOFT TISSUE: Normal. IMPRESSION: Prominent heel spurs. DATA REPOSITORY: RADIATION DOSE DELIVERED:
== END 2023-08-01 15:14 | disposition home or self-care (01) ==
LOC: DIORS 15:13
PROVIDERS: PCP Family Medicine; Referring Provider Family Medicine; Visit Provider Student in an Organized Health Care Education/Training Program
DX: M67.874 Other specified disorders of tendon, left ankle and foot (principal)
CPT/HCPCS: 99213; 73610

== ENCOUNTER → 2023-08-08 09:11 | Outpatient (CLI) | payer MEDICARE, SELFPAY ==
--- NOTE | 2023-08-08 08:15 | DI.MRI_ITS ---
Exam(s) MR LOWER JOINT LT WO EXAM: MR LOWER JOINT LT WO CLINICAL HISTORY: ? ACHILLES TEAR,achilles tendonosis lt ankle, m67.874 TECHNIQUE: Multiplanar multisequence MRI was performed without intravenous contrast. COMPARISON: CR XR ANKLE LT COMPLETE from 08/01/2023 FINDINGS: BONES/JOINTS: No fracture or contusion pattern. No bone lesions identified. The talar dome is smooth. The ankle mortise is maintained. No joint effusion is present. LIGAMENTS: The tibiofibular and calcaneofibular ligaments are intact. The talofibular ligaments are i ntact. The deltoid ligament is intact. The syndesmosis is unremarkable. Sinus tarsi is normal. MUSCULOTENDINOUS STRUCTURES: Achilles tendon: There is thickening and intermediate signal seen in the distal Achilles tendon at it s insertion site. There is mild edema in the adjacent calcaneus. There is a focus of hyperintense s ignal seen in the very distal Achilles tendon (series 4001, image 18). This may represent a small te ar. Plantar fascia: Unremarkable. Anterior Extensor tendons: Unremarkable. Posterior Tibialis: Unremarkable. Flexor Digitorum longus: Unremarkable. Flexor Hallucis longus: Unremarkable. Peroneus longus: Unremarkable. Peroneus brevis:Unremarkable. SOFT TISSUES: Unremarkable. OTHER FINDINGS: None. IMPRESSION: 1. Thickening and intermediate signal seen in the distal Achilles tendon consistent with tendinosis. There is a focus of hyperintense signal seen in the very distal Achilles tendon which may represent a small tear. 2. No evidence of a ligament tear. DATA REPOSITORY:
== END ==
PROVIDERS: PCP Family Medicine; Visit Provider Student in an Organized Health Care Education/Training Program
DX: M67.874 Other specified disorders of tendon, left ankle and foot (principal)
CPT/HCPCS: 73721

== ENCOUNTER → 2023-08-15 15:01 | Outpatient (BNVA) | payer MEDICARE, SELFPAY | PROVIDERS: PCP Family Medicine; Referring Provider Family Medicine; Visit Provider Student in an Organized Health Care Education/Training Program | DX: M67.874 Other specified disorders of tendon, left ankle and foot (principal) | CPT/HCPCS: 99213 ==

== ENCOUNTER 2023-11-21 16:15 | Outpatient (CLI) | payer MEDICARE, SELFPAY ==
[2023-11-21 16:25] VITALS: BP 124/75; PULSE 66; RESP 20; TEMP 36.7; O2SAT 96
[2023-11-21 16:57] VITALS: PULSE 71; O2SAT 94
[2023-11-21] MEDS: Nerve Block Tray 1 EACH MC (16:58)
[2023-11-21] MEDS: Lidocaine 2% Pres-Free 5 ML VIAL IJ (16:59)
[2023-11-21] MEDS: Bupivacaine 0.5% Pres-Free 10 ML VIAL IJ (17:00)
[2023-11-21] MEDS: methylPREDNISolone ACETATE 40 MG/ML VIAL IJ (17:01)
--- NOTE | 2023-11-26 06:15 | PDOC.PAIN_ITS ---
Date of service: 11/21/23 Time of Service: 17:20 US Guided Nerve Blocks Procedure Performed Right Lateral Femoral Cutaneous Nerve Block Pre-Procedural Evaluation Pain to the right thigh. He has had this procedure in the past and had >50% pain improvement for >3 months. Referral Patient has been referred to the [facility] for Right Lateral Femoral Cutaneous Nerve Block for a chief complaint of Pre-Procedural Pain Score 5/10 Reason for Exam Right anterior thigh pain Patient Interview Patient was interviewed and medical record reviewed: Yes There were no contraindications to performing an US guided procedure. Risks,expected side effects, potential benefits were reviewed. The patient consent form was signed and witnessed. Standard time out procedure was performed. Patient Safety No skin issues in the area to be injected Procedure Description No sedation given for the procedure Patient was placed in the supine position and the following monitors: Pulse Ox applied. Pre-procedure ultrasound scanning perfomed using a Linear 9 MHz probe Site Preparation Chloroprep Local Anesthesia Skin and subcutaneous tissues were anesthetized with: 3 mL of Lidocaine 2%. A 21 G 3.5 Pajunk ultrasound needle was placed under live US guidance using an in plane approach to the target area. After visualization of the needle tip at at the target area the following meds: Bupivacaine 0.5% and Depo-Medrol 40mg per cc were used. Total of injectate/medication mixture note: 1 cc of Depomedrol followed by 4 cc of 0.5% Bupivacaine Negative aspiration for blood. [place] were removed without difficulty. Ultrasound images captured and stored. Patient Mental Status Patient was alert during procedure. Vital Signs Vital signs were stable throughout the procedure and recorded by nursing. Follow Up/Discharge Follow up plans and appointments were discussed with patient. Post procedure instruction was given as documented in nursing documentation. Discharge criteria met and discharged from the [facility]: Yes Post Procedure Post Procedure Pain: 0/10 Patient tolerated procedure well Procedure outcome: Successful Lateral Femoral Cutaneous Nerve Block
== END 2023-11-21 16:16 | disposition home or self-care (01) ==
LOC: PC 16:15
PROVIDERS: PCP Family Medicine; Visit Provider Preventive Medicine Occupational Medicine
DX: M79.651 Pain in right thigh (principal); G57.11 Meralgia paresthetica, right lower limb
CPT/HCPCS: 64447; J0665; J1010

== ENCOUNTER → 2024-01-22 09:46 | Outpatient (BNVA) | payer MEDICARE, SELFPAY | PROVIDERS: PCP Family Medicine; Referring Provider Family Medicine; Visit Provider Nurse Practitioner Gerontology | DX: N40.1 Benign prostatic hyperplasia with lower urinary tract symptoms (principal); R35.1 Nocturia; R97.20 Elevated prostate specific antigen [PSA] | CPT/HCPCS: 99213 ==

== ENCOUNTER → 2024-04-22 10:50 | Outpatient (BNVA) | payer MEDICARE, SELFPAY | PROVIDERS: PCP Family Medicine; Referring Provider Family Medicine; Visit Provider Surgery | DX: K62.89 Other specified diseases of anus and rectum (principal) | CPT/HCPCS: 99213 ==

== ENCOUNTER → 2024-05-20 10:57 | Outpatient (BNVA) | payer MEDICARE, SELFPAY | PROVIDERS: PCP Family Medicine; Referring Provider Family Medicine; Visit Provider Surgery | DX: K62.89 Other specified diseases of anus and rectum (principal) | CPT/HCPCS: 99213 ==

== ENCOUNTER 2024-06-18 06:08 | Day surgery (SDC) | payer MEDICARE, SELFPAY ==
--- NOTE | 2024-06-17 16:09 | PDOC.DSDIS_ITS ---
Date of service: 06/18/24 Discharge Plan Disposition Patient Disposition: Home Condition: Good Discharge Details Reason For Visit: Anorectal exam under anesthesia and colonoscopy Attending Provider: Oliver Crawford Primary Care Provider: Ricardo Stephens Home Meds and New Rx's Prescriptions: Continued meloxicam 15 mg tablet 15 mg PO DAILY Qty: 90 3RF docusate sodium [Colace] 100 mg capsule 200 mg PO DAILY PRN chlorthalidone 25 mg tablet 25 mg PO DAILY Qty: 90 3RF bupropion HCl [Wellbutrin XL] 300 mg tablet extended release 24 hr 300 mg PO QAM Qty: 90 3RF losartan 100 mg tablet 100 mg PO DAILY Qty: 90 3RF rosuvastatin 10 mg tablet 10 mg PO DAILY Qty: 90 3RF Enbrel SureClick 50 mg/mL (1 mL) Pen Injector 50 mg SUBCUT QMONTH nitroglycerin 0.2 mg/hr patch 24 hour 1 patch transdermal Q24H Patient Comments: CHANGE 1 PATCH ON THE SKIN DAILY, APPLY 1/4 OF A NEW PATCH TO SPEEDY... (REFER TO PRESCRIPTION NOTES). Discontinued polyethylene glycol 3350 17 gram/dose powder 238 g PO ONCE Qty: 238 0RF Rx Instructions: take per colonoscopy instructions bisacodyl [Dulcolax (bisacodyl)] 5 mg tablet,delayed release (DR/EC) 5 mg PO ONCE Qty: 4 0RF Rx Instructions: take per colonoscopy instructions Discharge Instructions Additional Instructions: Sagar, it was nice to see you again today, and I hope you are comfortable during the procedure and that you make a quick recovery. Your colonoscopy went very smoothly. I did find to remove a single polyp today. That will be sent off for testing since polyps, different varieties, and we use that information to guide the timing of your next colonoscopy. You have a small amount of internal hemorrhoid disease. I did band single dominant hemorrhoid that hopefully will provide some relief of your symptoms. Those bands usually stay in place for about a week or 2, and they can be a little bit uncomfortable. There often time s she had during bowel movements, so if you notice a tiny little rubber band, or perhaps some blood clots in your stool, that is extremely common. Alternatively, most patients never really noticed it. He also had a small bit of prominent tissue on the outside portion of your anus, that may be the primary cause of your symptoms. I suspect this might be a dermatofibroma, or skin tag, or it might also be an old external hemorrhoid. Regardless, I excised it today, and I will send this off to the pathologist for a definitive tissue diagnosis. There are a couple stitches in your skin outside of your anus. These will be absorbed over the next week or 2. There may be some bleeding from this incision, that is extremely common and nothing to be alarmed about. I used a long-acting local anesthetic to help provide some relief at the incision site. Tylenol and ibuprofen may also be helpful over the next few days. Soaking your backside in warm water might also help with some swelling and discomfort. I typically recommend that patients do it once in the morning, once in the evening, and after bowel movements if possible. Just fill up the bathtub with shallow amount of warm water, mix in 2 or 3 tablespoons of baking soda, and soak your backside for about 10 to 15 minutes. Moisten tablets may also be comfortable with bowel movements over the next few days. Set up a follow-up appointment in the office at 7:45 AM on July 01. I should have all of the pathology reports by then, I will check the incision site to make sure it is healing okay. If you need anything in the meantime, please do not hesitate to call or ask at any point 1. If tolerated, consume a soft, low fiber diet for 1-2 days. [address] Do not drive, drink alcohol, operate machinery, make critical decisions, or do activities that require coordination or balance for 24 hours. 3. Because air was put into your colon during the procedure, expelling air from your rectum (passing gas or farting) is normal. 4. You may not have a bowel movement for 1-3 days because of the colonoscopy prep. This is normal. 5. Go directly to the emergency room if you notice any of the following: Develop chills (warm to touch), or if you have a thermometer and your temperature is above 101 Difficulty breathing or difficultly swallowing Persistent vomiting Severe abdominal pain, other than gas cramps Severe chest pain Black, tarry stools Any bleeding ? exceeding one tablespoon 6. Call your physician if the site where your intravenous was started becomes red, swollen, painful, and warm to touch. 7. Your physician has reviewed your pre-procedure medications. Please continue to take those medications as previously ordered. You will be given specific information/education regarding any changes to your medications before leaving. Activity:: Activity as Tolerated Diet:: As Tolerated Discharge Orders Discharge Orders: Discharge Order (Routine); Ordered 06/17/24 Ordered By: Oliver Crawford DS: Diagnosis Discharge Diagnosis (1) Anal pain: Status: Acute Asessment and Plan: Outpatient postoperative follow-up
--- NOTE | 2024-06-17 16:11 | W.COLOREPORT ---
Date of service: 06/18/24 Time of Service: 08:59 Colonoscopy Report Date of procedure: 06/18/24 Pre-op diagnosis general: Ano rectal pain Post-op diagnosis procedure note: other (Anal mass, internal hemorrhoids, colon polyps) Procedure: Anorectal exam under anesthesia with excision and closure of anal mass, internal hemorrhoid banding, and colonoscopy with polypectomy Surgeon: Oliver Crawford Anesthesia Type: General:No Airway Estimated blood loss (mL): 10 Pathology: other (Ascending colon polyp, anal mass) Complications: None Disposition: same day Indications: Sagar is a 68 year old man with ano rectal pain. He is also due for a screening colonscopy Prep: Miralax/Dulcolax Procedure Start Time: 07:41 Procedure End Time: 08:49 Retraction Time: 24 Findings: Anal mass, grade 1 internal hemorrhoids, ascending colon polyp Procedure Description: After the induction of anesthesia, and with the patient in the lithotomy position, I began by performing an external anorectal exam.? Just external to the anal verge, towards the right posterior side, there is a 0.75 x 0.5 cm slightly raised lesion on the skin. Location is consistent with an external hemorrhoid, the tissue is more consistent with a dermatofibroma.? Next, I performed a digital rectal exam.? This felt normal.? Next, I advanced a colonoscope into the rectal vault.? I performed retroflexion.? There is grade 1 internal hemorrhoids, most obvious in the right anterior column.? Using insufflation, I then advanced the colonoscope beyond the rectal folds and into the sigmoid colon before advancing towards the cecum.? The quality of the prep was excellent.? The scope was noted to be in the cecum by identification of the ileocecal valve and appendiceal orifice.? I then began withdrawing the colonoscope using repeated irrigation as necessary for full evaluation of the colonic mucosa. ?In the ascending colon is a 0.5 cm slightly pedunculated polyp. This was removed with cold snare polypectomy. There is minimal bleeding from the site. Once the scope was withdrawn to the level of the rectum, great care was taken to examine portions of the rectal folds.? The camera was then remove. I established a generous field block using local anesthetic mixed with Exparel. I began a Landon-Tana anal retractor, I performed direct viewing of the anal column. I saw no evidence of any fissure. again seen are grade 1 internal hemorrhoids, most obvious in the right anterior column. Suction band ligation was performed without any difficulty. I then turned my attention to the small mass just distal to the anal verge. This was grasped and sharply excised from the surrounding skin. Again, clinical features seem consistent with a dermatofibroma. Skin was reapproximated with interrupted 3-0 chromic sutures. [place] Bowel Prep [place] Bowel Prep Right Colon: 3 Left Colon: 3 Transverse Colon: 3 Total Score: 9
[2024-06-18 06:15] VITALS: BP 117/80; PULSE 74; RESP 18; TEMP 36.5; O2SAT 95
[2024-06-18] MEDS: Normal Saline 500 ML 30 ML IV (06:55)
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
[2024-06-18 07:11] VITALS: BMI 31.6
[2024-06-18] MEDS: Bupivacaine 0.25% Pres-Free W/EPI 30 ML VIAL (07:45)
[2024-06-18] MEDS: Bupivacaine LIPOSOME/PF 133 MG/10 ML VIAL IJ (07:45)
--- NOTE | 2024-06-18 08:24 | BOWEL_PTH ---
PATIENT: Jose David Solares LOC: [facility] U#:[id number] AGE/SX: 68/M ROOM: RE06/18/[address]: Oliver Crawford MD : 1955 BED: DIS: 06/18/2024 SPEC #: [id number] RECD: 06/18/24 12:44 STATUS: BRIGIDA RE #: [id number] SYLVIA: 06/18/24 08:[address]: Oliver Crawford DEPT: Surgical Specimen RECD BY: Amalia Tan ENTERED: 06/18/24 12:47 SP TYPE: Bowel OTHR DR: Ricardo Stephens MD Tissues: 1 - BIOPSY BOWEL 2 - BIOPSY BOWEL Procedures: GROSS AND MICRO LEVEL 4 GROSS AND MICRO LEVEL 3 Comments: [id number]
[2024-06-18 08:53] VITALS: BP 78/52; PULSE 50; RESP 14; TEMP 36.1; O2SAT 93
[2024-06-18 09:09] VITALS: BP 86/49; PULSE 51; RESP 16; TEMP 36.1; O2SAT 94
--- NOTE | 2024-06-18 09:18 | W.ANESPOSTOP ---
Postoperative Evaluation Date, Time and Location Date Performed: 06/18/24 Time Performed: 09:18 Patient Location: Day Surgery Unit Vital Signs Most Recent Imported Vital Signs: Most Recent Vital Signs Temp Pulse Resp BP Pulse Ox 36.1 C L 51 L 16 86/49 L 94 06/18/24 09:09 06/18/24 09:09 06/18/24 09:09 06/18/24 09:09 06/18/24 09:09 Pain Score Most Recent Pain Score: Most Recent Pain Score Pain Level 0 06/18/24 09:09 Assessment Mental Status: Awake (Alert & Oriented to Patient Baseline) Airway and Respiratory Function: Patent airway with normal (patient baseline) respiratory exam Cardiovascular Function: Hemodynamically Stable Hydration Status: Adequately Hydrated Nausea & Vomiting: No Nausea or Vomiting Pain: Pt. Denies Any Pain Peripheral Nerve Block: Patient did not receive a nerve block
[2024-06-18 09:30] VITALS: BP 91/53; PULSE 54; RESP 16; TEMP 36; O2SAT 98
[2024-06-18 09:50] VITALS: BP 109/55; PULSE 56; RESP 16; TEMP 36; O2SAT 98
== END 2024-06-18 10:10 | disposition home or self-care (01) ==
LOC: SUR 06:08
PROVIDERS: PCP Family Medicine; Visit Provider Surgery
PROC: (CPT 46922; principal; 2024-06-18 07:30)
PROC: 0DJD8ZZ Inspection of Lower Intestinal Tract, Via Natural or Artificial Opening Endoscopic (ICD-10-PCS; CPT 45378; 2024-06-18 07:30)
PROC: (CPT 46922; 2024-06-18 07:30)
DX: D12.2 Benign neoplasm of ascending colon (principal); K64.0 First degree hemorrhoids; D23.5 Other benign neoplasm of skin of trunk; K62.89 Other specified diseases of anus and rectum
CPT/HCPCS: 46922; 45385; 46221; 88305; 88304; C9290; J1100; J2003; J2405; J2704

== ENCOUNTER → 2024-07-01 07:39 | Outpatient (BNVA) | payer MEDICARE, SELFPAY | PROVIDERS: PCP Family Medicine; Referring Provider Family Medicine; Visit Provider Surgery | DX: K62.89 Other specified diseases of anus and rectum (principal) | CPT/HCPCS: 99213 ==

== ENCOUNTER 2025-01-13 02:55 | Outpatient (CLI) | payer MEDICARE, SELFPAY ==
[2025-01-14 09:41] LABS: PSA, Diagnostic 2.0 ng/mL (<=4.5)
== END 2025-01-13 02:56 | disposition home or self-care (01) ==
LOC: LBO 02:55
PROVIDERS: PCP Family Medicine; Visit Provider Nurse Practitioner Gerontology
DX: R97.20 Elevated prostate specific antigen [PSA] (principal)
CPT/HCPCS: 36415; 84153

== ENCOUNTER → 2025-01-20 09:54 | Outpatient (BNVA) | payer MEDICARE, SELFPAY | PROVIDERS: PCP Family Medicine; Referring Provider Family Medicine; Visit Provider Nurse Practitioner Gerontology | DX: N40.1 Benign prostatic hyperplasia with lower urinary tract symptoms (principal); N13.8 Other obstructive and reflux uropathy; R97.20 Elevated prostate specific antigen [PSA]; R39.9 Unspecified symptoms and signs involving the genitourinary system | CPT/HCPCS: 99213 ==

== ENCOUNTER 2025-04-14 01:38 | Outpatient (CLI) | payer MEDICARE, SELFPAY ==
[2025-04-14 08:13] LABS: Anion Gap 7.3 mmol/L (3-11); BUN 23 mg/dL (7-18); CO2 29.7 mmol/L (21.0-32.0); Calcium 8.6 mg/dL (8.5-10.1); Calculated LDL 95 mg/dL (<100); Chloride 104 mmol/L (98-107); Cholesterol 147 mg/dL (<200); Estimated GFR 59.47 (mL/min/1.73m2); Glucose 93 mg/dL (74-106); HDL Cholesterol 36 mg/dL (>or=40); Potassium 3.9 mmol/L (3.5-5.1); Sodium 141 mmol/L (136-145); Triglyceride 84 mg/dL (<150)
== END 2025-04-14 01:39 | disposition home or self-care (01) ==
LOC: LBO 01:38
PROVIDERS: PCP Family Medicine; Visit Provider Family Medicine
DX: E87.1 Hypo-osmolality and hyponatremia (principal); E78.5 Hyperlipidemia, unspecified; Z13.220 Encounter for screening for lipoid disorders
CPT/HCPCS: 36415; 80048; 80061